=== PATIENT | female | born 1960 | race African-American/Black ===

== ENCOUNTER 2019-10-20 02:44 | Emergency (ER) | payer OTHER ==
[~2019-10-20] VITALS: Ht 160 cm; Wt 75.3 kg
[2019-10-20] MEDS ORDERED: LOSARTAN-HCTZ1 EAC3 PO (02:55)
[2019-10-20 03:29] VITALS: BP 189/99
== END 2019-10-20 03:30 | disposition home or self-care (01) ==
LOC: M.ERS 02:44
DX: I10 Essential (primary) hypertension (principal); F41.9 Anxiety disorder, unspecified; Z88.1 Allergy status to other antibiotic agents